=== PATIENT | male | born 1960 | race Caucasian/White ===

== ENCOUNTER 2023-07-08 15:39 | Outpatient (CLI) | payer BC, SELFPAY ==
--- NOTE | 2023-07-08 15:15 | DI.RAD_ITS ---
Exam(s) XR KNEE LT 2V AP,LAT XR KNEE RT 2V AP,LAT XR STANDING ALIGNMENT EXAM: XR STANDING ALIGNMENT and XR knee bilateral 2 V CLINICAL HISTORY: knee pain. TECHNIQUE: 2D digital imaging was performed. Eight images were obtained. COMPARISON: There are no priors for comparison. FINDINGS: BONES: The hips are well maintained. In the right knee, there is moderate narrowing of the medial fe moral tibial joint. Osteophytes are seen in all 3 joint compartments. No joint effusion is seen. T he bones are normally mineralized. In the left knee there is marked narrowing of the medial femoral tibial joint. There osteophytes of the posterior patella. No joint effusion is seen. The bones are normally mineralized. The ankles are well maintained.There is no significant leg length discrepancy . SOFT TISSUE: Dystrophic soft tissue calcifications are seen in the lower extremities. IMPRESSION: Osteoarthritis of the knees bilaterally, left greater than right. DATA REPOSITORY: RADIATION DOSE DELIVERED:
== END 2023-07-08 15:40 | disposition home or self-care (01) ==
LOC: DIORS 15:40
PROVIDERS: PCP Internal Medicine; Visit Provider Physician Assistant
DX: M17.0 Bilateral primary osteoarthritis of knee (principal)
CPT/HCPCS: 73560; 77073

== ENCOUNTER 2023-11-20 05:52 | Day surgery (SDC) | payer BC, SELFPAY ==
[2023-11-20] VITALS (21 sets, daily range): BP systolic 109–138; BP diastolic 56–71; PULSE 66–72; RESP 11–22; TEMP 36–36.7; O2SAT 94–99; BMI 36.4
[2023-11-20] MEDS: Gabapentin 300 MG CAP PO (07:07)
[2023-11-20] MEDS: Celecoxib 200 MG CAP 400 MG PO (07:08)
[2023-11-20] MEDS: Acetaminophen 500 MG TAB 1000 MG PO (07:08)
[2023-11-20] MEDS: Lactated Ringers 1,000 ML 80 ML IV (07:08)
--- NOTE | 2023-11-20 07:09 | W.ANESPRE ---
General Info Date of Service Date Performed: 11/20/23 Height: 5 ft 6 in Weight: 102.4 kg Body Mass Index (BMI): 36.4 Surgical Procedure: Operation Date: 11/20/23 07:40 Proposed Procedure Side Surgeon p Knee Total Arthroplasty, Cementless CR Left Chaka Chaidez MD Meds Allergies and Home Medications Allergies Allergy/AdvReac Type Severity Reaction Status Date / Time No Known Allergies Allergy Verified 11/20/23 06:16 Home Medication Medication Instructions Recorded albuterol sulfate 90 mcg/actuation 2 puff inhalation Q6H PRN 05/28/23 aerosol inhaler allopurinol 100 mg tablet 100 mg PO DAILY 05/28/23 apixaban 2.5 mg tablet (Eliquis) 2.5 mg PO BID 05/28/23 empagliflozin 25 mg tablet 25 mg PO DAILY 05/28/23 (Jardiance) finasteride 5 mg tablet 5 mg PO DAILY 05/28/23 indomethacin 50 mg capsule 50 mg PO BID 05/28/23 insulin degludec 100 unit/mL (3 25 unit subcut DAILY 05/28/23 mL) subcutaneous pen (Tresiba FlexTouch U-100 insulin) lisinopril 2.5 mg tablet 2.5 mg PO DAILY 05/28/23 semaglutide 1 mg/dose (4 mg/3 mL) 2 mg subcut QWEEK 05/28/23 subcutaneous pen injector simvastatin 10 mg tablet 10 mg PO DAILY 05/28/23 metformin 500 mg tablet 1,000 mg PO BID 07/08/23 cyanocobalamin (vitamin B-12) 1,000 mcg PO DAILY 10/30/23 1,000 mcg capsule tamsulosin 0.4 mg capsule 0.4 mg PO DAILY 10/30/23 zafirlukast 10 mg tablet 10 mg PO DAILY 10/30/23 Current Visit Medications: Current Medications Generic Name Dose Route Start Last Admin Trade Name Freq PRN Reason Stop Dose Admin Acetaminophen 1,000 mg 11/20/23 06:00 Acetaminophen 500 Mg Tab PO 11/20/23 23:59 PREOP HEMA Celecoxib 400 mg 11/20/23 06:00 Celecoxib 200 Mg Cap PO 11/20/23 23:59 PREOP HEMA Gabapentin 300 mg 11/20/23 06:00 Gabapentin 300 Mg Cap PO 11/20/23 23:59 PREOP HEMA Ringer's Solution 1,000 mls @ 80 mls/hr 11/20/23 06:00 IV 11/20/23 23:59 INFUSION HEMA Cefazolin Sodium/Dextrose 2 gm in 50 mls @ 100 mls/hr 11/20/23 06:00 Ancef Duplex IVPB 11/20/23 23:59 PREOP HEMA Tranexamic Acid/Sodium Chloride 1,000 mg in 100 mls @ 600 mls/hr 11/20/23 06:00 IVPB 11/20/23 23:59 PREOP HEMA IV Miscellaneous Supplies 1 each 11/20/23 06:00 Iv Access IV 11/20/23 23:59 DIRECTED HEMA Sodium Chloride 0 ml 11/20/23 06:00 Normal Saline Flush 10 Ml Syr IV 11/20/23 23:59 PRN PRN Sodium Chloride 0 ml 11/20/23 06:00 Normal Saline 10 Ml Vial IJ 11/20/23 23:59 DIRECTED PRN Sterile Water 0 ml 11/20/23 06:00 Water,Injection,Sterile 10 Ml Vial IJ 11/20/23 23:59 DIRECTED PRN PFSH Active Problems Active Problems: Problem Status Onset Code Osteoarthritis of knees, bilateral M17.0 MIRZA (obstructive sleep apnea) G47.33 Labyrinthine dysfunction H83.2X9 Hypertensive disorder I10 Hypercoagulable state D68.59 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 Type 2 diabetes mellitus E11.9 Asthma J45.909 Medical History Medical History Pulmonary embolism (2012) History of TMJ disorder Obesity Low back pain Anemia Surgical History Surgical History History of colonoscopy Hx of tonsillectomy Tobacco Smoking/Tobacco Use Status: Never Alcohol Alcohol Intake: current Alcohol intake frequency: a few times a month Substance Use Substance use: Never Substance use type: does not use Vital Signs and Lab Results Vital Signs Most Recent Vital Signs in EMR: Most Recent Vital Signs Temp Pulse Resp BP Pulse Ox 36.4 C L 72 18 138/70 98 11/20/23 06:10 11/20/23 06:10 11/20/23 06:10 11/20/23 06:10 11/20/23 06:10 Point of Care Results Point of Care Results: blood sugar 114 Lab Results Blood Type / Crossmatch: No Data to Display Complete Blood Count: No Data to Display Complete Metabolic Panel: No Data to Display Liver Function Panel: No Data to Display Coagulation Panel: No Data to Display Cardiac Panel: No Data to Display Arterial Blood Gas: No Data to Display Venous Blood Gas: No Data to Display Pancreas Panel: No Data to Display Thyroid Panel: No Data to Display Infectious Disease: No Data to Display Blood Cultures: No Data to Display Toxicology Panel: No Data to Display Anesthesia Assessment and Plan Anesthesia History Personal History: No History of Anesthesia Complications Family History: No Family History of Anesthesia Complications Exercise Tolerance Exercise Tolerance: Metabolic Equivalents>4 Pertinent Negatives Pertinent Negatives: No Symptoms of GERD, No Major Cardiovascular Symptoms or Complaints, No Major Pulmonary Symptoms or Complaints and No History of CVA/TIA Cardiac & Pulmonary Exam Cardiac Exam: Normal S1/S2 Heart Sounds Pulmonary Exam: Clear Bilateral Breath Sounds Implantable Cardiac Device Does patient have a Pacemaker or an ICD?: No Airway Exam Known Difficult Airway: No Mallampati Class: 3 Mouth Opening: Normal (> 3cm) Thyromental Distance: Greater than 3 cm Neck Range of Motion: Full ROM and Other (TMJ with some stiffness) Neck Circumference: Normal Teeth Condition: Normal Dentition (one missing left upper) ASA Classification ASA Score: ASA 3 Emergency Case?: No NPO Status NPO Status: NPO Clears >2 hours, Solids >8 hours Anesthesia Plan Resuscitation Status: Full Code Anesthesia Technique: Spinal Anesthesia Airway Planned: Natural Airway Pain Management: Surgeon and patient request nerve block Monitors Used: Standard Monitors
[2023-11-20] MEDS: ceFAZolin 2 GM/50 ML BAG IVPB (07:34)
[2023-11-20] MEDS: TRANEXAMIC ACID/SOD. CHL. 1,000 MG/100 ML BAG 600 MG IVPB (07:47)
--- NOTE | 2023-11-20 08:14 | W.ANESNERVE ---
Nerve Block Single Injection Procedure Date and Time Date Performed: 11/20/23 Procedure Start: 07:22 Location Where Procedure Performed Procedure Location: Day Surgery Unit Reason Performed: Postoperative Analgesia Requesting Provider: Chaka Chaidez Timeout Performed Timeout Performed: Yes Monitoring Used ECG, Blood Pressure, SpO2 and See EMR for corresponding vital signs Sterility Sterility: Hand Hygiene, Surgical Cap, Surgical Mask, Sterile Gloves, Sterile Drape/Sheet and Chlorhexidine Sedation Given During Procedure Sedation Given (Indicate Dose Given): No Sedation given and Versed IV Dose:: 2 mg Patient Mental Status Patient Mental Status: Sedate with meaningful communication Nerve Block 1st Nerve Block: Laterality: Left Block Type: Adductor Canal Ultrasound Image Saved?: Yes Needle / Catheter Used: 100mm SonoPlex II Local Anesthetic Bolus (Indicate Dose Given): Lidocaine used for local infiltration of skin, Injected in 3-5ml increments after negative blood aspiration and Bupivacaine 0.25% Dose:: 15 ml Additives (Indicate Dose Given): None Ultrasound: Sterile probe cover and gel used Nerve Stimulator: Supplement to Ultrasound use and No twitch or parasthesia noted < 0.5 mA Paresthesia: None Procedure Tolerated: No Complications and Patient tolerated well Procedure Outcome: Successful Performed By: Mignon Parry Other (not listed above): Called in Nancy Ta to help clarify anatomy
[2023-11-20] MEDS: TRANEXAMIC ACID/SOD. CHL. 1,000 MG/100 ML BAG 60 MG (08:55)
--- NOTE | 2023-11-20 09:32 | W.PM.DSUDISC ---
Date of service: 11/20/23 Time of Service: 09:33 Discharge Plan Disposition Patient Disposition: Home Condition: Good Discharge Details Reason For Visit: L TKR Attending Provider: Chaka Chaidez Primary Care Provider: Shayna Bush Home Meds and New Rx's Prescriptions: New celecoxib 200 mg capsule 200 mg PO BID Qty: 60 0RF acetaminophen 500 mg tablet 1,000 mg PO TID Qty: 90 3RF gabapentin 300 mg capsule 300 mg PO QHS Qty: 14 0RF pantoprazole 40 mg tablet,delayed release (DR/EC) 40 mg PO DAILY Qty: 30 0RF oxycodone 5 mg tablet 5 mg PO Q4H MDD 6 tabs PRN (Reason: pain) Qty: 20 0RF Continued albuterol sulfate 90 mcg/actuation HFA aerosol inhaler 2 puff inhalation Q6H PRN allopurinol 100 mg tablet 100 mg PO DAILY Eliquis 2.5 mg tablet 2.5 mg PO BID finasteride 5 mg tablet 5 mg PO DAILY Jardiance 25 mg tablet 25 mg PO DAILY lisinopril 2.5 mg tablet 2.5 mg PO DAILY semaglutide 1 mg/dose (4 mg/3 mL) pen injector 2 mg subcut QWEEK simvastatin 10 mg tablet 10 mg PO DAILY insulin degludec [Tresiba FlexTouch U-100] 100 unit/mL (3 mL) insulin pen 25 unit subcut DAILY Patient Comments: 20units today metformin 500 mg tablet 1,000 mg PO BID zafirlukast 10 mg tablet 10 mg PO DAILY Rx Instructions: must be taken on empty stomach, at least 1 hr before or 2 hrs after a meal/food tamsulosin 0.4 mg capsule 0.4 mg PO DAILY cyanocobalamin (vitamin B-12) 1,000 mcg capsule 1,000 mcg PO DAILY Discontinued indomethacin 50 mg capsule 50 mg PO BID Rx Instructions: administer with food or milk Discharge Instructions Additional Instructions: Total Knee Discharge Instructions Activity: The most important activity is to walk and to work on gentle motion (both flexion and extension). You should try to take short walks a few times a day. It is important that when resting you work on keeping the knee straight. Avoid putting a pillow behind the knee as this will encourage flexion. Work on range of motion exercises as provided by Physical Therapy. - Start outpatient physical therapy within 2 weeks. - You should wear the TIGIST hose on both legs for 2 weeks. You may remove these at night. You may also use any compression sock in place of the TIGIST hose. - Utilize [employer] to review exercises, see videos on exercises and obtain basic information pertaining to your surgery and your recovery. Dressing: Remove the Jonny wrap by 2 days after your surgery and put on the TIGIST stocking given to you from the hospital. Keep the surgical dressing (underneath the JONNY wrap) in place for at least one week. After the first week it may be removed and replaced with light gauze and tape or nothing. The wound and dressing may get wet after 3 days but avoid soaking the dressing or otherwise it will need to be changed. Many people prefer covering the dressing with cling wrap (saran wrap) to minimize it from getting soaked. If it gets wet, just pat dry. If it starts to peel off then it will need to be changed. Medications: - You should take Tylenol and anti-inflammatory Celebrex as your primary pain control medications. If the Celebrex is too expensive or not covered, please call the office for another alternative (Advil/Ibuprofen or Naproxen/Aleve) - You have been prescribed a stronger pain medication Oxycodone for breakthrough pain, take as needed as prescribed. - You have also been prescribed a stomach acid reduction agent Pantoprozole to help reduce stomach acid and reflux. - You have been prescribed Gabapentin to take at night for restlessness and nerve pain. - You will be taking your apixaban for DVT prevention unless instructed otherwise. - If you have constipation you should take Colace or Miralax (both [id number]). It takes most people 3-4 days to have a bowel movement. Follow-up: 2 weeks If you have any acute concerns or questions, please do not hesitate to contact the office at [phone]. You may contact Dr. Chaidez with any questions after hours through the hospital at [phone] or on his cell phone at [phone]. Referrals: Chaka Chaidez MD [ [facility] STAFF PHYSICIAN] - Equipment/Supplies: Walker Activity:: Activity as Tolerated Shower/Bathe:: 72 hours Diet:: As Tolerated Discharge Orders Discharge Orders: Discharge Order (Routine); Ordered 11/20/23 Ordered By: Fernando Booker DS: Diagnosis Discharge Diagnosis (1) Osteoarthritis of knees, bilateral: Status: Acute
[2023-11-20] MEDS: fentaNYL 100 MCG/2 ML VIAL IVP (09:56)
--- NOTE | 2023-11-20 10:03 | ROE_ITS ---
Date of service: 11/20/23 Time of Service: 07:50 Operative Note Operative Note DATE OF PROCEDURE: 11/20/23 PRE-OP DIAGNOSIS: Left Knee Osteoarthritis POST-OP DIAGNOSIS: same PROCEDURE: Left Total Knee Replacement SURGEON: Chaka Chaidez NUCLEAR EQUIPMENT TEST ENGINEER: Marcus Booker ANESTHESIA TYPE: Spinal Refer to Anesthesia Record ESTIMATED BLOOD LOSS: 150 PATHOLOGY: none sent TOURNIQUET TIME: 0 COMPLICATIONS: None Patient was transported to: PACU Patient's condition: stable Implants: 1. Depuy Attune Cementless Cruciate Retaining Femoral Component, Size 6 2. Depuy Attune Cementless Fixed Bearing Tibial Component, Size 6 3. Depuy Attune 6x6 CR/FB Poly 4. Depuy Attune Patellar Component, Size 35 Indications: I have seen Ángel in clinic for symptoms of knee arthritis, confirmed with radiographic findings. Ángel has exhausted nonoperative methods and was having significant limitations in daily function and desired better function and less pain. I discussed the technical details of a knee replacement. I explained the risks of the procedure to include, but not limited to, bleeding, infection, pain, stiffness, fracture, damage to nerves and vessels, damage to muscles and tendons, loosening, need for repeat procedure, blood clot and cardiopulmonary demise. Despite these risks, Ángel elected to proceed. Findings: There was significant signs of arthritis throughout the knee mostly affecting the medial compartment although there were signs of arthritis in the lateral compartment and central chondromalacia of the patella. Procedure Description: Ángel was greeted in the preoperative holding area where the correct side was identified and marked. The consent was reviewed with the patient and signed. The history and physical was updated. All questions were answered. Preoperative medications were administered: Acetaminophen 1000mg, Celebrex 400mg, and Gabapentin 300mg. An adductor canal block was then administered by the anesthesia team in the DSU. He was taken back to the operating room. A spinal anesthestic was then administered. The patient was placed into the supine position on the operating room table. A nonsterile tourniquet was placed high onto the leg but only used for cementing. Posts were placed for positioning during the procedure. All bony prominences were well padded. Prophylactic antibiotics in the form of Cefazolin were administered. 1g of Tranxemic Acid was given intravenously within 30 minutes of incision. The left leg was then prepped with Chloraprep and draped in a standard fashion with impervious stockinette. A second prep with Chloraprep was performed prior to application of Iodine impregnated skin protection. A timeout to confirm correct identity, side and site, procedure, allergies, anesthesia, and medical concerns was performed. With the knee in some flexion, a midline incision was made overlying the knee. Full thickness skin flaps were raised once the extensor mechanism was encountered. These were raised medially and laterally. Any bleeding was controlled with electrocautery. Once the extensor mechanism was fully exposed, a medial parapatellar arthrotomy was performed in a flexed position. All bleeding from the arthrotomy and the geniculate arteries was coagulated. A medial subperiosteal peel was performed with electrocautery to the midcoronal plane. The fat pad was removed while k eeping the patellar tendon protected. The anterior distal femur synovium was removed for later visualization. The ACL and PCL were resected and the anterior horn of the lateral meniscus was transected. The knee was then flexed with the patella translated laterally. There was notable difficulty in everting the patella and therefore the patella was only translated for the majority of the case. Using a step drill, and based on preoperative templating, the femoral canal was entered. This was done with a step drill without any difficulty. The intramedullary distal femoral cut guide was inserted, set to a 5 degree valgus cut and 9mm cut thickness. The distal femoral cut guide was then held in position and pinned. With the soft tissues protected, the distal cut was performed. This was passed over a few times to ensure a planar cut. I then turned attention to the tibia. The extramedullary guide was placed onto the leg. The distal aspect was slid medial to adjust for position of center of ankle and stay in line with shaft of the tibia. Approximately 3-5 degrees of posterior slope was kept in the proximal cutting guide. The center of the guide was aligned with the PCL. The stylus was used to assess cut thickness. The medial side, most involved side, was set for a 4mm cut. This was then held in position and pinned into place with 2 additional pins and a cross pin for stability. The medial and lateral collateral ligaments were protected and the cut was performed. With this completed, it was assessed and noted to be of appropriate dimensions. The guide was removed. A spacer block was inserted and the knee was brought into extension. The 6mm spacer block provided full extension, without hyperextension and with stability of both the medial and lateral collateral ligaments was assessed. The pins from the femur and the tibia were then removed. The distal femur was then sized. The anterior stylus was placed onto the lateral ridge of the anterior femur. This indicated a size 6 femur. The external rotation of the guide was adjusted to 3 degrees to match the epicondylar axis, perpendicular to Gene?s line. The 4-in-1 cutting guide was the placed, moved posteriorly by 1 notch, approximately 1.5 mm. The posterior medial femur cut was evaluated and appeared of good thickness. The spacer block was inserted underneath the cutting guide and stability was confirmed in 90 degrees of flexion. An guillermo wing was used to confirm appropriate position of the anterior cut to avoid notching. This cutting guide was ensured to be flush on the cut surface and then pinned into place with headed pins. While protecting the soft tissues, quad tendon, and collateral ligaments, the anterior and posterior cuts were performed with a saw. The central two pins were removed and the posterior and anterior chamfers were cut next. The notch-cutting guide was placed. This was pinned to lateralize the femoral component as much as possible while keeping it flush on the cut surface. This was then pinned into position. A reciprocating saw was used to make the notch cut. A rasp smoothed the cut surfaces. The medial and lateral menisci were removed. A trial femoral component was then inserted, impacted down to the cut surfaces, and the lug holes were drilled. A provisional trial tibial component was placed and the knee was brought through range of motion. There was noted to be excellent extension and flexion. There was no significant instability. The patella was tracking without thumbs. A size 6mm polyethylene component provided the best range of motion and stability with less than 2mm gapping with medial and lateral stress and full extension without significant hyperextension. The tibial cut surface was fully exposed. The tibia was then sized as a 6. The tibia had been previously marked during trialing to correspond to the center of the tibial component to help with rotation. The trial was aligned to this marcus, approximately rotated to the medial 1/3rd of the tibial tubercle. The trial was pinned into place. The tibia was prepared with a reamer and a keel punch and lug holes. The knee was then brought into extension and the patella was measured as 27mm. Using the patellar clamp and cut guide, this was resected to a flat surface with at least 13mm of thickness remaining. The size 35 patella fit the best. This was oriented and then clamped into position. The lugs were drilled. The trial components were removed. The final components were opened on the back table. The periosteal and capsular tissues, especially posteriorly, around the knee were then systematically injected with a periarticular cocktail consisting of 246mg of Ropivacaine, 0.5mg of Epinephrine, 0.08mg of Clonidine, and 30mg of Ketorolac, diluted to 100cc. On the back table, with the implants opened, the cement was mixed. One batch of high viscosity cement was prepared with vacuum assistance. After the cement was ready a small amount was placed on the cut surface of the patella and the patellar button was clamped into position and held. While the cement was hardening, the cementless knee components were placed. Starting with the tibial component, the tibia was subluxed anteriorly and the lug holes of the component were lined up. The tibia was then impacted with an impactor and mallet until the tibial component was in contact with the tibia. The final polyethylene component was inserted. Then, the femoral component was inserted. The lug holes were aligned and the component was impacted into position. The knee was irrigated with Surgiphor Betadine solution. This was allowed to sit in the knee for 3 minutes and then it was irrigated out with saline. After the cement had finally cured, approximately 15min, the clamp was removed from the patella and the knee was taken through range of motion. The patella was tracking with a no-thumbs technique. The capsule was then reapproximated with a No. 1 Vicryl at multiple locations. The capsule was finally closed with a No. 2 Stratafix, barbed suture. The second dosing of 1g TXA was started. Deep tissues were then reapproximated with 0 Vicryl and 2-0 Vicryl. The skin was closed with a running 3-0 Monocryl in a subcuticular fashion. This was reinforced with skin glue. A Mepilex silver dressing was applied along with a [id number] SHARAN wrap. A CryoCuff was applied. Ángel was transferred to the hospital bed without difficulty an suffering no apparent complication. Ángel has a good prognosis. Physical therapy will start today and without restrictions, weight-bearing as tolerated. His home dose of apixaban 2.5 mg twice daily will be used for DVT prophylaxis.
--- NOTE | 2023-11-20 11:18 | PT.INIE ---
PT Notes Visit Reasons: L TKR Physical Therapy Day Surgery Initial Evaluation Date: 11/20/2023 Referring Doctor: CASIMIRO Ayala PT Orders: PT CONSULT: S/P Ortho Surgery Precautions: WBAT on L LE with AD. Patient Profile/Admitting Diagnosis: Ghulam is a 63-year-old male with degenerative joint disease of the left knee and status post left total knee arthroplasty on postoperative day 0. PMHX: Medical History Pulmonary embolism (2012) History of TMJ disorder Obesity Low back pain Anemia Social History/Home Situation: Independent with all aspects of ADLs prior to surgery. 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 Equipment Owned/DME: None Subjective: Reports 5/10 pain in the L knee at rest, 6/10 with weight bearing. initially stiff in the L quad but issue resolved with walking. Objective: General Observation: SHARAN wraps to L LE. Cryocuff to L knee. TEDS to R leg/foot Mental Status: A and O x 4 Pain: 4-5/10 in the L knee ROM: Right Lower Extremity: Hip flexion WFL. Hip abduction WFL. Knee flexion WFL. Ankle dorsiflexion WFL. Ankle plantarflexion WFL. Left Lower Extremity: Hip flexion WFL. Hip abduction WFL. Knee flexion 20 degrees to 100 degrees. Extension -20 degrees. Ankle dorsiflexion WFL. Ankle plantarflexion WFL. Strength: Right Lower Extremity: Hip flexors 4/5. Hip abductors 4/5. Knee flexors 4/5. Knee extensors 4/5. Ankle dorsiflexors 5/5. Ankle plantarflexors 5/5. Left Lower Extremity:Hip flexors 5/5. Hip abductors 5/5. Knee flexors 3-/5. Knee extensors 3-/5. Ankle dorsiflexors 5/5. Ankle plantarflexors 5/5. Sensation: Intact as to pain and pressure in B LE Bed Mobility/Transfers: Minimal cueing provided for use of B hands as needed for support, movement sequence, AD management, and posture to reduce fall risk and minimize pain report Supine to sit standby assist Sit to stand standby assist with FWW Stand to sit standby assist with FWW Bed to chair standby assist with FWW Gait: Facilitated safe and correct performance of level surface ambulation covering a distance of 150 feet using front wheeled walker with reciprocal swing through heel-toe gait pattern requiring only standby assist and minimal verbal cueing for limb movement sequence, AD management, and posture to reduce fall risk and minimize pain report. Stairs: Guided patient with safe and correct negotiation of 6 x 4 inch steps and 4 x 6 inch steps while holding onto a rail and using a single-point cane on the other side using step to gait pattern with standby assist and minimal verbal cueing for increased knee flexion on the left at at bedtime and, AD management, and posture to reduce fall risk and minimize pain report. Balance: Static Sitting: Normal Dynamic Sitting: Normal Static Standing: Fair Dynamic Standing: Fair Special Tests: Mobility Limitations Standardized Measure [facility] 6 clicks Basic Mobility Inpatient Short Form: Raw Score: 24 CMS Score: 0% deficit Informed Consent/Education: Patient instructed in purpose of PT consult. Packet containing TKA exercise protocol has been given to patient. Education and training on initial set of exercises that can be done at home have been completed with patient. Trained patient with correct performance of exercises below to maximize motor control, joint flexibility, soft tissue extensibility of the L knee musculature: Access Code: [email or web address] URL: [email or web address] Date: 11/19/2022 Prepared by: Cristiana Hoyt Exercises - Supine Quad Set - 1 x daily - 7 x weekly - 1 sets - 10 reps - 5 hold - Supine Heel Slide - 1 x daily - 7 x weekly - 1 sets - 10 reps - 5 hold - Supine Ankle Pumps - 1 x daily - 7 x weekly - 1 sets - 10 reps - 5 hold - Small Range Straight Leg Raise - 1 x daily - 7 x weekly - 1 sets - 10 reps - 5 hold - Seated March - 1 x daily - 7 x weekly - 1 sets - 10 reps - 5 hold Assessment: Patient requires the use of a front wheeled walker for mobility ADL performance to maximize independence and reduce fall risk. Patient presents with clinical signs and symptoms consistent with current/admitting diagnoses that have resulted to mobility limitations, gait instability, generalized weakness, and impairment of motor control as demonstrated by the following impairment level findings: 1. Decreased strength to left knee major muscle groups 2. Impaired standing balance 3. Limitation of joint range of motion in left knee Impairments are contributing to the following functional limitations: 1. Inability to safely ambulate without assistive device 2. Increase completion time for mobility ADL performance 3. Increased fall risk Patient is assessed as a 23717 moderate complexity based on the following: History: 63-year-old male with impairment level findings, functional limitations, and past medical history as indicated above Examination: Demonstrable impairment in strength, balance, and mobility level with underlying impairments and functional limitations as documented above Presentation: Evolving Decision Makin moderate complexity Goals: N/A. PT evaluation and 1-2 treatment sessions only for functional mobility training using recommended AD and for HEP instruction. Plan of Care/Treatment Plan: N/A. PT evaluation and 1-2 treatment session only for functional mobility training using recommended AD and for HEP instruction. DISCHARGE RECOMMENDATIONS: Home when medically cleared by orthopedic surgeon. Recommend outpatient PT services in order to optimize functional mobility outcomes and facilitate return to independent community ambulation without an assistive device. TREATMENT CODE/TIME: 42426 x 20 minutes for 1 unit, 9753 0 x 13 minutes for 1 unit (11:18?11:51). Thank you for the opportunity to participate in the care of this patient. Please sign an return this page within 30 days if you agree with the above POC. Thank you! Physician Signature Date Cristiana Hoyt PT, DPT, CLT [facility] [place], [place]
--- NOTE | 2023-11-20 12:24 | W.ANESPOSTOP ---
Postoperative Evaluation Date, Time and Location Date Performed: 11/20/23 Time Performed: 12:24 Patient Location: Day Surgery Unit Vital Signs Most Recent Imported Vital Signs: Most Recent Vital Signs Temp Pulse Resp BP Pulse Ox 36 C L 70 16 127/71 97 11/20/23 10:51 11/20/23 10:51 11/20/23 10:51 11/20/23 10:51 11/20/23 10:51 Pain Score Most Recent Pain Score: Most Recent Pain Score Pain Level 5 11/20/23 10:51 Assessment Mental Status: Awake (Alert & Oriented to Patient Baseline) Airway and Respiratory Function: Patent airway with normal (patient baseline) respiratory exam Cardiovascular Function: Hemodynamically Stable Hydration Status: Adequately Hydrated Nausea & Vomiting: No Nausea or Vomiting Pain: Pain is tolerable per patient Peripheral Nerve Block: Regional nerve block not resolved at time of post operative discharge
== END 2023-11-20 12:30 | disposition home or self-care (01) ==
PROVIDERS: PCP Internal Medicine; Visit Provider Student in an Organized Health Care Education/Training Program
PROC: (CPT 27447; principal; 2023-11-20 07:30)
DX: M17.12 Unilateral primary osteoarthritis, left knee (principal); E11.9 Type 2 diabetes mellitus without complications; Z79.4 Long term (current) use of insulin; J45.909 Unspecified asthma, uncomplicated; I10 Essential (primary) hypertension; D64.9 Anemia, unspecified
CPT/HCPCS: 27447; 76942; 97162; 97530; C1776; J0665; J0690; J1100; J2250; J2371; J2401; J2405; J2704; J3010

== ENCOUNTER 2023-12-05 11:00 | Outpatient (CLI) | payer BC, SELFPAY ==
--- NOTE | 2023-12-05 10:30 | DI.RAD_ITS ---
Exam(s) XR KNEE LT 1V XR STANDING ALIGNMENT EXAM: XR STANDING ALIGNMENT and XR knee LT 1 V CLINICAL HISTORY: 1ST POST OP S/P L TKA. TECHNIQUE: 2D digital imaging was performed. Five images were obtained. COMPARISON: CR XR STANDING ALIGNMENT from 07/08/2023 CR XR KNEE RT 2V AP,LAT from 07/08/2023 CR XR KNEE LT 2V AP,LAT from 07/08/2023 FINDINGS: BONES: The hips are well maintained. The right knee is well maintained apart from small osteophytes in the lateral femoral tibial joint. The patient has a left total knee replacement. The orthopedic hardware appears in good position. No suspicious lucencies are seen around the orthopedic hardware. The ankles are well maintained.The right lower extremity is 1 cm longer than the left lower extremit y. SOFT TISSUE: There is mild soft tissue swelling around the left knee. IMPRESSION: Left total knee replacement. DATA REPOSITORY: RADIATION DOSE DELIVERED:
== END 2023-12-05 11:01 | disposition home or self-care (01) ==
LOC: DIORS 11:00
PROVIDERS: PCP Internal Medicine; Visit Provider Student in an Organized Health Care Education/Training Program
DX: Z96.652 Presence of left artificial knee joint (principal)
CPT/HCPCS: 73560; 77073

== ENCOUNTER 2024-04-30 03:34 | Outpatient (CLI) | payer BC, SELFPAY ==
[2024-04-30 09:04] LABS: HCT 41.3 % (40.0-50.0); HGB 13.6 g/dL (13.5-17.5); MCH 30.4 pg (27.0-33.0); MCHC 32.9 % (32.0-36.0); MCV 92 fL (80-95); Platelet Count 184 10^3/uL (130-400); RBC 4.47 10^6/uL (4.36-5.78); RDW 13.2 % (11.8-14.1); WBC 6.49 10^3/uL (4.4-10.8)
[2024-04-30 09:31] LABS: BUN 18 mg/dL (7-18); CREATININE 1.4 mg/dL (0.70-1.30); Calcium 9.3 mg/dL (8.5-10.1); Chloride 105 mmol/L (98-107); Estimated GFR 56.13 (mL/min/1.73m2); Glucose 222 mg/dL (74-106); Potassium 4.1 mmol/L (3.5-5.1); Sodium 140 mmol/L (136-145)
== END 2024-04-30 03:35 | disposition home or self-care (01) ==
LOC: LBO 03:34
PROVIDERS: PCP Internal Medicine; Visit Provider Student in an Organized Health Care Education/Training Program
DX: M17.11 Unilateral primary osteoarthritis, right knee (principal); Z01.818 Encounter for other preprocedural examination
CPT/HCPCS: 36415; 80048; 85027

== ENCOUNTER 2024-05-13 06:59 | Day surgery (SDC) | payer BC, SELFPAY ==
[2024-05-13] VITALS (30 sets, daily range): BP systolic 98–144; BP diastolic 45–78; PULSE 64–79; RESP 12–22; TEMP 36–36.7; O2SAT 95–100; BMI 35.2
--- NOTE | 2024-05-13 07:22 | W.PM.DSUDISC ---
Date of service: 05/13/24 Discharge Plan Disposition Patient Disposition: Home Condition: Good Discharge Details Reason For Visit: R TKR Attending Provider: Chaka Chaidez Primary Care Provider: Shayna Bush Home Meds and New Rx's Prescriptions: New celecoxib 200 mg capsule 200 mg PO BID Qty: 60 0RF acetaminophen 500 mg tablet 1,000 mg PO TID Qty: 90 3RF gabapentin 300 mg capsule 300 mg PO QHS Qty: 14 0RF oxycodone 5 mg tablet 5 mg PO Q4H MDD 6 tabs PRN (Reason: pain) Qty: 20 0RF Continued insulin degludec [Tresiba FlexTouch U-100] 100 unit/mL (3 mL) insulin pen 10 unit subcut DAILY albuterol sulfate 90 mcg/actuation HFA aerosol inhaler 2 puff inhalation Q6H PRN allopurinol 100 mg tablet 100 mg PO DAILY Eliquis 2.5 mg tablet 2.5 mg PO BID finasteride 5 mg tablet 5 mg PO DAILY Jardiance 25 mg tablet 25 mg PO DAILY lisinopril 2.5 mg tablet 2.5 mg PO DAILY semaglutide 1 mg/dose (4 mg/3 mL) pen injector 2 mg subcut QWEEK simvastatin 10 mg tablet 10 mg PO DAILY metformin 500 mg tablet 1,000 mg PO BID zafirlukast 10 mg tablet 10 mg PO DAILY Rx Instructions: must be taken on empty stomach, at least 1 hr before or 2 hrs after a meal/food tamsulosin 0.4 mg capsule 0.4 mg PO DAILY cyanocobalamin (vitamin B-12) 1,000 mcg capsule 1,000 mcg PO DAILY Discontinued celecoxib 200 mg capsule 200 mg PO BID Qty: 180 0RF acetaminophen 500 mg tablet 1,000 mg PO TID Qty: 90 3RF pantoprazole 40 mg tablet,delayed release (DR/EC) 40 mg PO DAILY Qty: 30 0RF Discharge Instructions Additional Instructions: Total Knee Discharge Instructions Activity: The most important activity is to walk and to work on gentle motion (both flexion and extension). You should try to take short walks a few times a day. It is important that when resting you work on keeping the knee straight. Avoid putting a pillow behind the knee as this will encourage flexion. Work on range of motion exercises as provided by Physical Therapy. - Start outpatient physical therapy within 2 weeks. - You should wear the TIGIST hose on both legs for 2 weeks. You may remove these at night. You may also use any compression sock in place of the TIGIST hose. - Utilize [employer] to review exercises, see videos on exercises and obtain basic information pertaining to your surgery and your recovery. Dressing: Remove the Jonny wrap by 2 days after your surgery and put on the TIGIST stocking given to you from the hospital. Keep the surgical dressing (underneath the JONNY wrap) in place for at least one week. After the first week it may be removed and replaced with light gauze and tape or nothing. The wound and dressing may get wet after 3 days but avoid soaking the dressing or otherwise it will need to be changed. Many people prefer covering the dressing with cling wrap (saran wrap) to minimize it from getting soaked. If it gets wet, just pat dry. If it starts to peel off then it will need to be changed. Medications: - You should take Tylenol and anti-inflammatory Celebrex as your primary pain control medications. If the Celebrex is too expensive or not covered, please call the office for another alternative (Advil/Ibuprofen or Naproxen/Aleve) - You have been prescribed a stronger pain medication Oxycodone for breakthrough pain, take as needed as prescribed. - You have also been prescribed a stomach acid reduction agent Pantoprozole to help reduce stomach acid and reflux. - You have been prescribed Gabapentin to take at night for restlessness and nerve pain. - You will be taking your apixaban for DVT prevention unless instructed otherwise. - If you have constipation you should take Colace or Miralax (both [id number]). It takes most people 3-4 days to have a bowel movement. Follow-up: 2 weeks If you have any acute concerns or questions, please do not hesitate to contact the office at [phone]. You may contact Dr. Chaidez with any questions after hours through the hospital at [phone] or on his cell phone at [phone]. Referrals: Chaka Chaidez MD [ [facility] STAFF PHYSICIAN] - Equipment/Supplies: Walker Activity:: Activity as Tolerated Shower/Bathe:: 72 hours Diet:: As Tolerated Discharge Orders Discharge Orders: Discharge Order (Routine); Ordered 05/13/24 Ordered By: Fernando Booker DS: Diagnosis Discharge Diagnosis (1) Osteoarthritis of right knee: Status: Acute
--- NOTE | 2024-05-13 08:00 | ANES.PREOP_ITS ---
General Info Date of Service Date Performed: 05/13/24 Height: 5 ft 6 in Weight: 98.9 kg Body Mass Index (BMI): 35.2 Surgical Procedure: Operation Date: 05/13/24 09:25 Proposed Procedure Side Surgeon p Knee Total Arthroplasty, Cementless CR, (6 Fem & Tib) Right Chaka Chaidez MD Meds Allergies and Home Medications Allergies Allergy/AdvReac Type Severity Reaction Status Date / Time No Known Allergies Allergy Verified 05/13/24 07:44 Home Medication ?Medication ?Instructions ?Recorded albuterol sulfate 90 mcg/actuation 2 puff inhalation Q6H PRN 05/28/23 aerosol inhaler allopurinol 100 mg tablet 100 mg PO DAILY 05/28/23 apixaban 2.5 mg tablet (Eliquis) 2.5 mg PO BID 05/28/23 empagliflozin 25 mg tablet 25 mg PO DAILY 05/28/23 (Jardiance) finasteride 5 mg tablet 5 mg PO DAILY 05/28/23 lisinopril 2.5 mg tablet 2.5 mg PO DAILY 05/28/23 semaglutide 1 mg/dose (4 mg/3 mL) 2 mg subcut QWEEK 05/28/23 subcutaneous pen injector simvastatin 10 mg tablet 10 mg PO DAILY 05/28/23 metformin 500 mg tablet 1,000 mg PO BID 07/08/23 cyanocobalamin (vitamin B-12) 1,000 mcg PO DAILY 10/30/23 1,000 mcg capsule tamsulosin 0.4 mg capsule 0.4 mg PO DAILY 10/30/23 zafirlukast 10 mg tablet 10 mg PO DAILY 10/30/23 insulin degludec 100 unit/mL (3 10 unit subcut DAILY 04/30/24 mL) subcutaneous pen (Tresiba FlexTouch U-100 insulin) acetaminophen 500 mg tablet 1,000 mg (2 x 500 mg) PO TID #90 05/13/24 tabs blood sugar diagnostic (FreeStyle 05/13/24 Lite Strips) celecoxib 200 mg capsule 200 mg PO BID #60 caps 05/13/24 celecoxib 200 mg capsule (Celebrex) 200 mg PO BID 05/13/24 gabapentin 300 mg capsule 300 mg PO QHS #14 caps 05/13/24 oxycodone 5 mg tablet 5 mg PO Q4H PRN pain #20 tabs 05/13/24 Current Visit Medications: Current Medications Generic Name Dose Route Start Last Admin Trade Name Freq PRN Reason Stop Dose Admin Acetaminophen 1,000 mg 05/13/24 06:00 Acetaminophen 500 Mg Tab PO 05/13/24 23:59 PREOP HEMA Acetaminophen 1,000 mg 05/13/24 07:20 Acetaminophen 500 Mg Tab PO 06/12/24 07:19 TID PRN PRN Analgesia Celecoxib 400 mg 05/13/24 06:00 Celecoxib 200 Mg Cap PO 05/13/24 23:59 PREOP HEMA Docusate Sodium 100 mg 05/13/24 07:20 Docusate Sodium 100 Mg Cap PO 06/12/24 07:19 BID PRN PRN Constipation Gabapentin 300 mg 05/13/24 06:00 Gabapentin 300 Mg Cap PO 05/13/24 23:59 PREOP HEMA Cefazolin Sodium/Dextrose 2 gm in 50 mls @ 100 mls/hr 05/13/24 06:00 Ancef Duplex IVPB 05/13/24 23:59 PREOP HEMA Tranexamic Acid/Sodium Chloride 1,000 mg in 100 mls @ 600 mls/hr 05/13/24 06:00 IVPB 05/13/24 23:59 PREOP HEMA Sodium Chloride 1,000 mls @ 80 mls/hr 05/13/24 07:15 Saline 1000ml Bag IV 06/12/24 07:14 INFUSION [facility] IV Miscellaneous Supplies 1 each 05/13/24 06:00 Iv Access IV 05/13/24 23:59 DIRECTED [facility] Ondansetron HCl 4 mg 05/13/24 07:20 Ondansetron 4 Mg/2 Ml Vial IVP 06/12/24 07:19 Q6H PRN PRN Nausea Oxycodone HCl 0 mg 05/13/24 07:20 Oxycodone 5 Mg Tab PO 06/12/24 07:19 Q3H PRN PRN Pain Polyethylene Glycol 17 gm 05/13/24 07:20 Polyethylene Glycol 3350 17 Gm Packet PO 06/12/24 07:19 BID PRN PRN Constipation Sodium Chloride 0 ml 05/13/24 06:00 Normal Saline Flush 10 Ml Syr IV 05/13/24 23:59 PRN PRN Sodium Chloride 0 ml 05/13/24 06:00 Normal Saline 10 Ml Vial IJ 05/13/24 23:59 DIRECTED PRN Sterile Water 0 ml 05/13/24 06:00 Water,Injection,Sterile 10 Ml Vial IJ 05/13/24 23:59 DIRECTED PRN PFSH Active Problems Active Problems: Problem Status Onset Code Osteoarthritis of right knee Acute M17.11 MIRZA (obstructive sleep apnea) Chronic G47.33 Labyrinthine dysfunction Acute H83.2X9 Hypertensive disorder Chronic I10 Hypercoagulable state Acute D68.59 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 Type 2 diabetes mellitus Acute E11.9 Asthma Chronic J45.909 Medical History Medical History (Updated 05/13/24 @ 08:06 by Alfie Harris RN) Pulmonary embolism (2012) History of TMJ disorder Obesity Low back pain Anemia Surgical History Surgical History (Updated 05/13/24 @ 08:06 by Alfie Harris RN) History of total left knee replacement (11/20/23) 11/2023 History of colonoscopy Hx of tonsillectomy Tobacco Smoking/Tobacco Use Status: Never Alcohol Alcohol Intake: current Alcohol intake frequency: a few times a month Substance Use Substance use: Never Substance use type: does not use Details: alcohol: t-5, sip Vital Signs and Lab Results Vital Signs Most Recent Vital Signs in EMR: Most Recent Vital Signs Temp Pulse Resp BP Pulse Ox 36.4 C L 76 16 143/78 H 100 05/13/24 07:56 05/13/24 07:56 05/13/24 07:56 05/13/24 07:56 05/13/24 07:56 Lab Results Blood Type / Crossmatch: 2 No Data to Display Complete Blood Count: 2 White Blood Count 6.49 10^3/uL (4.4-10.8) 04/30/24 08:40 Red Blood Count 4.47 10^6/uL (4.36-5.78) 04/30/24 08:40 Hemoglobin 13.6 g/dL (13.5-17.5) 04/30/24 08:40 Hematocrit 41.3 % (40.0-50.0) 04/30/24 08:40 Platelet Count 184 10^3/uL (130-400) 04/30/24 08:40 Complete Metabolic Panel: 2 Sodium 140 mmol/L (136-145) 04/30/24 08:40 Potassium 4.1 mmol/L (3.5-5.1) 04/30/24 08:40 Chloride 105 mmol/L (98-107) 04/30/24 08:40 Carbon Dioxide 25.0 mmol/L (21.0-32.0) 04/30/24 08:40 BUN 18 mg/dL (7-18) 04/30/24 08:40 Creatinine 1.4 mg/dL (0.70-1.30) H 04/30/24 08:40 Est GFR (CKD-EPI 2020) 56.13 (mL/min/1.73m2) 04/30/24 08:40 Calcium 9.3 mg/dL (8.5-10.1) 04/30/24 08:40 Glucose 222 mg/dL (74-106) H 04/30/24 08:40 Liver Function Panel: 2 No Data to Display Coagulation Panel: 2 No Data to Display Cardiac Panel: 2 No Data to Display Arterial Blood Gas: 2 No Data to Display Venous Blood Gas: 2 No Data to Display Pancreas Panel: 2 No Data to Display Thyroid Panel: 2 No Data to Display Infectious Disease: 2 No Data to Display Blood Cultures: 2 No Data to Display Toxicology Panel: 2 No Data to Display Anesthesia Assessment and Plan Anesthesia History Personal History: No History of Anesthesia Complications Family History: No Family History of Anesthesia Complications Exercise Tolerance Exercise Tolerance: Metabolic Equivalents>4 Pertinent Negatives Pertinent Negatives: No Symptoms of GERD, No Major Cardiovascular Symptoms or Complaints, No Major Pulmonary Symptoms or Complaints and No History of CVA/TIA Cardiac & Pulmonary Exam Cardiac Exam: Normal S1/S2 Heart Sounds Pulmonary Exam: Clear Bilateral Breath Sounds Implantable Cardiac Device Does patient have a Pacemaker or an ICD?: No Airway Exam Known Difficult Airway: No Mallampati Class: 3 Mouth Opening: Normal (> 3cm) Thyromental Distance: Greater than 3 cm Neck Range of Motion: Full ROM and Other (TMJ with some stiffness) Neck Circumference: Normal Teeth Condition: Normal Dentition (one missing left upper) Tooth Numberin 1. Missing front tooth ASA Classification ASA Score: ASA 3 Emergency Case?: No NPO Status NPO Status: NPO Clears >2 hours, Solids >8 hours Anesthesia Plan Resuscitation Status: Full Code Anesthesia Technique: Spinal Anesthesia Airway Planned: Natural Airway Pain Management: Surgeon and patient request nerve block Monitors Used: Standard Monitors
[2024-05-13] MEDS: Acetaminophen 500 MG TAB 1000 MG PO (08:19)
[2024-05-13] MEDS: Gabapentin 300 MG CAP PO (08:19)
[2024-05-13] MEDS: Celecoxib 200 MG CAP 400 MG PO (08:19)
[2024-05-13] MEDS: Normal Saline 1,000 ML 80 ML IV (08:25)
--- NOTE | 2024-05-13 08:49 | W.ANESNERVE ---
Nerve Block Single Injection Procedure Date and Time Date Performed: 05/13/24 Procedure Start: 08:30 Location Where Procedure Performed Procedure Location: Day Surgery Unit Reason Performed: Postoperative Analgesia Requesting Provider: Chaka Chaidez Timeout Performed Timeout Performed: Yes Monitoring Used ECG, Blood Pressure and SpO2 Sterility Sterility: Hand Hygiene, Surgical Cap, Surgical Mask, Sterile Gloves and Chlorhexidine Sedation Given During Procedure Sedation Given (Indicate Dose Given): Versed IV Dose:: 2 mg Patient Mental Status Patient Mental Status: Sedate with meaningful communication Nerve Block 1st Nerve Block: Laterality: Right Block Type: Adductor Canal Ultrasound Image Saved?: Yes Needle / Catheter Used: 100mm SonoPlex II Local Anesthetic Bolus (Indicate Dose Given): Lidocaine used for local infiltration of skin, Injected in 3-5ml increments after negative blood aspiration and Bupivacaine 0.25% Dose:: 10 ml Additives (Indicate Dose Given): Normal Saline Ultrasound: Sterile probe cover and gel used Nerve Stimulator: Supplement to Ultrasound use and No twitch or parasthesia noted < 0.5 mA Paresthesia: None Procedure Tolerated: No Complications and Patient tolerated well Procedure Outcome: Successful Performed By: Yon Dumont
[2024-05-13] MEDS: ceFAZolin 2 GM/50 ML BAG IVPB (09:15)
--- NOTE | 2024-05-13 09:22 | ROE_ITS ---
Operative Note Operative Note PRE-OP DIAGNOSIS: Right Knee Arthritis POST-OP DIAGNOSIS: same PROCEDURE: Right Total Knee Replacement SURGEON: Chaka Chaidez DIRECTOR CHANNEL: Marcus Booker ANESTHESIA TYPE: Spinal Refer to Anesthesia Record ESTIMATED BLOOD LOSS: 100 PATHOLOGY: none sent TOURNIQUET TIME: 0 COMPLICATIONS: None Patient was transported to: PACU Patient's condition: stable Implants: 1. Depuy Attune Cementless Cruciate Retaining Femoral Component, Size 7 2. Depuy Attune Cementless Fixed Bearing Tibial Component, Size 6 3. Depuy Attune 7x7mm CR/FB Poly 4. Depuy Attune Patellar Component, Size 38 Indications: I have seen Ghulam in clinic for symptoms of knee arthritis, confirmed with radiographic findings. He has exhausted nonoperative methods and was having significant limitations in daily function and desired better function and less pain. I discussed the technical details of a knee replacement. He had suc cessful replacement on the left side. I explained the risks of the procedure to include, but not limited to, bleeding, infection, pain, stiffness, fracture, damage to nerves and vessels, damage to muscles and tendons, loosening, need for repeat procedure, blood clot and cardiopulmonary demise. Despite these risks, he elected to proceed. Findings: There was significant signs of arthritis throughout the knee. Procedure Description: Ángel was greeted in the preoperative holding area where the correct side was identified and marked. The consent was reviewed with the patient and signed. The history and physical was updated. All questions were answered. Preoperative medications were administered: Acetaminophen 1000mg, Celebrex 400mg, and Gabapentin 300mg. An adductor canal block was then administered by the anesthesia team in the DSU. He was taken back to the operating room. A spinal anesthestic was then administered. The patient was placed into the supine position on the operating room table. Posts were placed for positioning during the procedure. All bony prominences were well padded. Prophylactic antibiotics in the form of Cefazolin were administered. 1g of Tranxemic Acid was given intravenously within 30 minutes of incision. The right leg was then prepped with Chloraprep and draped in a standard fashion with impervious stockinette. A second prep with Chloraprep was performed prior to application of Iodine impregnated skin protection. A timeout to confirm correct identity, side and site, procedure, allergies, anesthesia, and medical concerns was performed. With the knee in some flexion, a midline incision was made overlying the knee. Full thickness skin flaps were raised once the extensor mechanism was encountered. These were raised medially and laterally. Any bleeding was controlled with electrocautery. Once the extensor mechanism was fully exposed, a medial parapatellar arthrotomy was performed in a flexed position. All bleeding from the arthrotomy and the geniculate arteries was coagulated. A medial subperiosteal peel was performed with electrocautery to the midcoronal plane. Due to the significant varus deformity the entire medial tibial plateau was exposed. The fat pad was removed while keeping the patellar tendon protected. The anterior distal femur synovium was removed for later visualization. The ACL and PCL were resected and the anterior horn of the lateral meniscus was transected. The knee was then flexed with the patella everted. Large osteophytes from the tibia were removed. Large osteophytes from the femur were removed. Using a step drill, and based on preoperative templating, the femoral canal was entered. This was done with a step drill without any difficulty. The intramedullary distal femoral cut guide was inserted, set to a 6 degree valgus cut and 9mm cut thickness. The distal femoral cut guide was then held in position and pinned. With the soft tissues protected, the distal cut was performed. This was passed over a few times to ensure a planar cut. I then turned attention to the tibia. The extramedullary guide was placed onto the leg. The distal aspect was slid medial to adjust for position of center of ankle and stay in line with shaft of the tibia. Approximately 3-5 degrees of posterior slope was kept in the proximal cutting guide. The center of the guide was aligned with the PCL. The stylus was used to assess cut thickness. The medial side, most involved side, was set for a 4mm cut. This was then held in position and pinned into place with 2 additional pins and a cross pin for stability. The medial and lateral collateral ligaments were protected and the cut was performed. With this completed, it was assessed and noted to be of appropriate dimensions. The guide was removed. A spacer block was inserted and the knee was brought into extension. The 6mm spacer block provided full extension, without hyperextension and with stability of both the medial and lateral collateral ligaments was assessed. The pins from the femur and the tibia were then removed. The distal femur was then sized. The anterior stylus was placed onto the lateral ridge of the anterior femur. This indicated a size 7 femur. The external rotation of the guide was adjusted to 5 degrees to match the epicondylar axis, perpendicular to Holland?s line. The 4-in-1 cutting guide was the placed. The posterior medial femur cut was evaluated and appeared of good thickness. The spacer block was inserted underneath the cutting guide and stability was confirmed in 90 degrees of flexion. An guillermo wing was used to confirm appropriate position of the anterior cut to avoid notching. This cutting guide was ensured to be flush on the cut surface and then pinned into place with headed pins. While protecting the soft tissues, quad tendon, and collateral ligaments, the anterior and posterior cuts were performed with a saw. The central two pins were removed and the posterior and anterior chamfers were cut next. The notch-cutting guide was placed. This was pinned to lateralize the femoral component as much as possible while keeping it flush on the cut surface. This was then pinned into position. A reciprocating saw was used to make the notch cut. A rasp smoothed the cut surfaces. The medial and lateral menisci were removed. A trial femoral component was then inserted, impacted down to the cut surfaces, and the lug holes were drilled. A provisional trial tibial component was placed and the knee was brought through range of motion. The polyethylene was trialed until there was good flexion and extension with excellent stability to the medial and lateral collaterals. The patella was tracking without thumbs. A size 7mm polyethylene component provided the best range of motion and stability with less than 2mm gapping with medial and lateral stress and full extension without significant hyperextension. The tibial cut surface was fully exposed. The tibia was then sized as a 6. The tibia had been previously marked during trialing to correspond to the center of the tibial component to help with rotation. The trial was aligned to this marcus, approximately rotated to the medial 1/3rd of the tibial tubercle. The trial was pinned into place. The tibia was prepared with a reamer and a keel punch and lug holes. The knee was then brought into extension and the patella was measured as 27mm. Using the patellar clamp and cut guide, this was resected to a flat surface with at least 13mm of thickness remaining. The size 38 patella fit the best. This was oriented and then clamped into position. The lugs were drilled. The trial components were removed. The final components were opened on the back table. The periosteal and capsular tissues, especially posteriorly, around the knee were then systematically injected with a periarticular cocktail consisting of 246mg of Ropivacaine, 0.5mg of Epinephrine, 0.08mg of Clonidine, and 30mg of Ketorolac, diluted to 100cc. On the back table, with the implants opened, the cement was mixed. One batch of high viscosity cement was prepared with vacuum assistance. After the cement was ready a small amount was placed on the cut surface of the patella and the patellar button was clamped into position and held. While the cement was hardening, the cementless knee components were placed. Starting with the tibial component, the tibia was subluxed anteriorly and the lug holes of the component were lined up. The tibia was then impacted with an impactor and mallet until the tibial component was in contact with the tibia. The final polyethylene component was inserted. Then, the femoral component was inserted. The lug holes were aligned and the component was impacted into position. The knee was irrigated with Surgiphor Betadine solution. This was allowed to sit in the knee for 3 minutes and then it was irrigated out with saline. After the cement had finally cured, approximately 15min, the clamp was removed from the patella and the knee was taken through range of motion. The patella was tracking with a no-thumbs technique. The capsule was then reapproximated with a No. 1 Vicryl at multiple locations. The capsule was finally closed with a No. 2 Stratafix, barbed suture. The seco nd dosing of 1g TXA was started. Deep tissues were then reapproximated with 0 Vicryl and 2-0 Vicryl. The skin was closed with a running 3-0 Monocryl in a subcuticular fashion. This was reinforced with skin glue. A Mepilex silver dressing was applied along with a [id number]-of-koebp SHARAN wrap. A CryoCuff was applied. Ángel was transferred to the hospital bed without difficulty an suffering no apparent complication. He has a good prognosis. Physical therapy will start today and without restrictions, weight-bearing as tolerated. His home dose of Eliquis 2.5mg BID will be used for DVT prophylaxis. Date of Procedure: 05/13/24
[2024-05-13] MEDS: TRANEXAMIC ACID/SOD. CHL. 1,000 MG/100 ML BAG 600 MG IVPB (09:27)
[2024-05-13] MEDS: fentaNYL 100 MCG/2 ML VIAL IVP (11:39)
--- NOTE | 2024-05-13 13:47 | IN_ITS ---
PT Notes Visit Reasons: R TKR Physical Therapy Day Surgery Initial Evaluation Date:05/13/2024 Referring Doctor: Dr Chaidez PT Orders: PT CONSULT: S/p ortho surgery Precautions: WBAT RLE, TEDs x 2 weeks, Patient Profile/Admitting Diagnosis: Pt is 63 yo male presenting s/p elective R TKA under spinal anesthesia. Post -op uncomplicated. PMHX: s/p L TKA 11/2023, MIRZA, Labyrinthine Dysfunction. Hypertensive disorder, Hypercoagulable state, Hereditary coagulation factor deficiency, Type 2 DM, Asthma, Social History/Home Situation: Pt resides with in 2 story home with 3 steps with a post to enter. He has a 13 steps with rail to primary bedroom. He will be staying on first floor initially. 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 (+) drives . Independent with ADLs, iADLs, ambulation with cane recently d/t pain in knee. assists with meals, shopping household tasks. Equipment Owned/DME: Commode over toilet, FWW, SPC Subjective:Pt reports his thigh feels tight and is hopeful it will loosen up when he stands and walks Objective: General Observation: Pt presents semireclined in bed with cryocuff to right knee and IV access LUE. Mental Status: A+ O x 4, cooperative motivated to start PT session Pain:supine 5/10 standing 3/10 right knee ROM: Right Upper Extremity: WFL Left Upper Extremity: WFL Right Lower Extremity: knee 5-92 , ankle DF 5 degrees Left Lower Extremity: WNL Strength: Right Upper Extremity: 5/5 Left Upper Extremity: 5/5 Right Lower Extremity: hip 3-/5 knee 3-/5, ankle 3/5 Left Lower Extremity: knee 4/5 Sensation: intact Bed Mobility/Transfers: Supine to sit independent Sit to stand SBA Stand to sit SBA Bed to chair SBA with FWW Gait: ambulate 150 feet with FWW demonstrating reciprocal pattern with impaired right knee flexion with circumduction during swing phase and slight vaulting. Balance: Static Sitting:Normal Dynamic Sitting:good Static Standing: Good with UE support Dynamic Standing:Fair + with 1 UE support Special Tests: Mobility Limitations Standardized Measure [facility] AM-PAC 6 clicks Basic Mobility Inpatient Short Form: Raw Score: 23 CMS Score: 11.20% Informed Consent/Education: Patient instructed in purpose of PT consult. Packet containing TKA exercise protocol has been given to patient. Education and training on initial set of exercises that can be done at home have been completed with patient. Assessment: Patient presents with clinical signs and symptoms consistent with current/admitting diagnoses that have resulted to mobility limitations, gait instability, generalized weakness, and impairment of motor control as demonstrated by the following impairment level findings: 1. Decreased strength to right knee major muscle groups 2. Impaired standing balance 3. Limitation of joint range of motion in right knee 4. pain right knee 5. impaired functional activity tolerance Impairments are contributing to the following functional limitations: 1. Inability to safely ambulate without assistive device 2. Increase completion time for mobility ADL performance 3. Increased fall risk 4. impaired ability to perform stair management safely independently Patient is assessed as a low complexity based on the following: History: 63-year-old male with impairment level findings, functional limitations, and past medical history as indicated above Examination: Demonstrable impairment in strength, balance, and mobility level with underlying impairments and functional limitations as documented above Presentation: stable Decision Making: low Goals: N/A. Plan of Care/Treatment Plan: N/A. DISCHARGE RECOMMENDATIONS:Home with Outpatient services as scheduled TREATMENT CODE/TIME: 10863/ [id number] Thank you for the opportunity to participate in the care of this patient. Joselyn Mendoza PT [facility]/ [facility] Please sign an return this page within 30 days if you agree with the above POC. Thank you! Physician Signature Date [facility]
--- NOTE | 2024-05-13 14:00 | W.ANESPOSTOP ---
Postoperative Evaluation Date, Time and Location Date Performed: 05/13/24 Time Performed: 13:10 Patient Location: Day Surgery Unit Vital Signs Most Recent Imported Vital Signs: Most Recent Vital Signs Temp Pulse Resp BP Pulse Ox 36.0 C L 79 16 119/59 L 98 05/13/24 12:30 05/13/24 12:30 05/13/24 12:30 05/13/24 12:30 05/13/24 12:30 Pain Score Most Recent Pain Score: Most Recent Pain Score Pain Level 5 05/13/24 12:30 Assessment Mental Status: Awake (Alert & Oriented to Patient Baseline) Airway and Respiratory Function: Patent airway with normal (patient baseline) respiratory exam Cardiovascular Function: Hemodynamically Stable Hydration Status: Adequately Hydrated Nausea & Vomiting: No Nausea or Vomiting Pain: Pain is tolerable per patient Peripheral Nerve Block: Regional nerve block not resolved at time of post operative discharge
== END 2024-05-13 13:54 | disposition home or self-care (01) ==
PROVIDERS: PCP Internal Medicine; Visit Provider Student in an Organized Health Care Education/Training Program
PROC: (CPT 27447; principal; 2024-05-13 09:15)
DX: M17.11 Unilateral primary osteoarthritis, right knee (principal); G47.33 Obstructive sleep apnea (adult) (pediatric); I10 Essential (primary) hypertension; E11.9 Type 2 diabetes mellitus without complications; D68.2 Hereditary deficiency of other clotting factors; J45.909 Unspecified asthma, uncomplicated; G89.18 Other acute postprocedural pain; M25.561 Pain in right knee
CPT/HCPCS: 27447; 64447; 97161; C1776; J0665; J0690; J1100; J2250; J2371; J2401; J2405; J2704; J3010

== ENCOUNTER 2024-05-28 15:23 | Outpatient (CLI) | payer BC, SELFPAY ==
--- NOTE | 2024-05-28 07:45 | DI.RAD_ITS ---
Exam(s) XR STANDING ALIGNMENT XR KNEE RT 1V EXAM: XR STANDING ALIGNMENT and XR knee RT 1 V CLINICAL HISTORY: 1ST POST OP S/P R TKA. TECHNIQUE: 2D digital imaging was performed. Five images were obtained. COMPARISON: CR XR KNEE LT 1V from 12/05/2023 CR XR STANDING ALIGNMENT from 12/05/2023 FINDINGS: BONES: The hips are well maintained. Since the prior examination the patient has undergone a right t otal knee replacement. The orthopedic hardware appears in good position. No suspicious lucencies ar e seen around the hardware. The patient had a prior left total knee replacement. The ankles are wel l maintained.There is no significant leg length discrepancy. SOFT TISSUE: Dystrophic calcifications are again seen in the soft tissues of the lower extremities bi laterally. IMPRESSION: Stable right total knee arthroplasty. DATA REPOSITORY: RADIATION DOSE DELIVERED:
== END 2024-05-28 15:24 | disposition home or self-care (01) ==
LOC: DIORS 15:23
PROVIDERS: PCP Internal Medicine; Visit Provider Student in an Organized Health Care Education/Training Program
DX: Z96.651 Presence of right artificial knee joint (principal); Z47.1 Aftercare following joint replacement surgery
CPT/HCPCS: 73560; 77073

== ENCOUNTER 2024-11-23 14:57 | Outpatient (CLI) | payer BC, SELFPAY ==
--- NOTE | 2024-11-23 14:45 | DI.RAD_ITS ---
Exam(s) XR KNEE LT 2V AP,LAT EXAM: XR KNEE LT 2V AP,LAT INDICATION: ANNUAL F/U R TKA. COMPARISON: CR XR KNEE LT 1V from 12/05/2023 CR XR STANDING ALIGNMENT from 05/28/2024 CR XR KNEE RT 1V from 05/28/2024 TECHNIQUE: 2D digital imaging was performed. Two views. FINDINGS: There is stable alignment of the total knee prosthesis. No abnormal surrounding lucencies. No visible joint effusion. A Impression: Stable appearance of knee prosthesis. DATA REPOSITORY: RADIATION DOSE DELIVERED:
== END 2024-11-23 14:58 | disposition home or self-care (01) ==
LOC: DIORS 14:57
PROVIDERS: PCP Internal Medicine; Referring Provider Internal Medicine; Visit Provider Student in an Organized Health Care Education/Training Program
DX: Z96.651 Presence of right artificial knee joint (principal); Z96.652 Presence of left artificial knee joint
CPT/HCPCS: 73560

== ENCOUNTER 2025-05-13 14:48 | Outpatient (CLI) | payer BC, SELFPAY ==
--- NOTE | 2025-05-13 14:15 | DI.RAD_ITS ---
Exam(s) XR KNEE RT 2V AP,LAT EXAM: XR KNEE RT 2V AP,LAT CLINICAL HISTORY: ANNUAL F/U R TKA. TECHNIQUE: 2D digital imaging was performed. Two images were obtained. And lateral views were obtained. COMPARISON: CR XR KNEE RT 2V AP,LAT from 07/08/2023 CR XR STANDING ALIGNMENT from 05/28/2024 CR XR KNEE RT 1V from 05/28/2024 CR XR KNEE LT 2V AP,LAT from 11/23/2024 FINDINGS: BONES: There are post operative changes of a right total knee arthroplasty present. No fracture or dislocation. JOINTS: The orthopedic hardware is in good position. There is now mild lucency around the tibial component laterally and anteriorly. SOFT TISSUE: Normal. IMPRESSION: There are postsurgical changes of a right total knee arthroplasty. There is mild lucency seen at the interface between the tibial prosthetic component in the proximal tibia. This may reflect loosening. Please correlate clinically. DATA REPOSITORY: RADIATION DOSE DELIVERED:
== END 2025-05-13 14:49 | disposition home or self-care (01) ==
LOC: DIORS 14:48
PROVIDERS: PCP Internal Medicine; Visit Provider Student in an Organized Health Care Education/Training Program
DX: Z96.651 Presence of right artificial knee joint (principal)
CPT/HCPCS: 73560